=== PATIENT | male | born 1970 | race Caucasian/White ===

== ENCOUNTER 2023-04-10 09:32 | Day surgery (SDC) | payer OTHER ==
[~2023-04-10] VITALS: Ht 180.3 cm; Wt 141.8 kg
[~2023-04-10 09:32] MED LIST: CEPH500 PO; OXYACE5T PO; RXHYDMOR2 PO
[2023-04-10] MEDS ORDERED: Norco 5-325 Ta1 EACH (09:50)
[2023-04-10] MEDS ORDERED: IBUP600 (09:50)
[2023-04-10] MEDS ORDERED: FLUTICASONE-SA1 EAC1 (09:50)
[2023-04-10] MEDS ORDERED: LOSA25 (09:51)
[2023-04-10] MEDS ORDERED: OMEP20ER (09:52)
[2023-04-10] MEDS ORDERED: MONT10T (09:52)
[2023-04-10] MEDS ORDERED: VALA500 PO (10:00)
[2023-04-10] MEDS ORDERED: XYOSTED100 MG/0.1 (10:03)
[2023-04-10 11:47] VITALS: BP 119/85
--- NOTE | 2023-04-10 11:53 | NUR ---
04/10/23 1153 Modesta Cruz IV, DC'Paloma WNL, CATH INTACT. SITE WRAPPED IN COBAN. PT TOLERATED WELL.
== END 2023-04-10 11:40 | disposition home or self-care (01) ==
LOC: ORSCSDS 09:32
PROVIDERS: Internal Medicine Gastroenterology
PROC: 0DBL8ZX Excision of Transverse Colon, Via Natural or Artificial Opening Endoscopic, Diagnostic (ICD-10-PCS; principal; 2023-04-10 10:45)
PROC: 0DBK8ZX Excision of Ascending Colon, Via Natural or Artificial Opening Endoscopic, Diagnostic (ICD-10-PCS; principal; 2023-04-10 10:45)
PROC: 0DBH8ZX Excision of Cecum, Via Natural or Artificial Opening Endoscopic, Diagnostic (ICD-10-PCS; principal; 2023-04-10 10:45)
DX: Z12.11 Encounter for screening for malignant neoplasm of colon (principal); D12.0 Benign neoplasm of cecum; D12.2 Benign neoplasm of ascending colon; D12.3 Benign neoplasm of transverse colon; K63.5 Polyp of colon; K64.4 Residual hemorrhoidal skin tags; I10 Essential (primary) hypertension; G47.33 Obstructive sleep apnea (adult) (pediatric); K21.9 Gastro-esophageal reflux disease without esophagitis; Z79.899 Other long term (current) drug therapy; E66.01 Morbid (severe) obesity due to excess calories; Z68.41 Body mass index [BMI] 40.0-44.9, adult
CPT/HCPCS: 82947; 88305; J2250; J2704; J3010; J7120